=== PATIENT | female | born 1990 | race Caucasian/White ===

== ENCOUNTER 2018-10-22 08:43 | Emergency (ER) | payer BC ==
--- OUTSIDE RECORDS SUMMARY | 2018-10-22 08:48 | XMS REPORT | Continuity of Care Document ---
:1990 External Reference #:[id number] Author Name Gerardo Hernandez Care Team Providers Name Role Phone Jose Welsh MD Care Team Information Preschool Principal Unavailable Patient's Choice Primary Care Physician Unavailable Payers Type Date Identification Numbers Payment Provider Subscriber Policy Number: [id number] [facility] Danya Canales PayID: [id number] [address] [place] [address] Advance Directives Description No Information Available Problems Description No Information Family History Date Family Member(s) Problem(s) Comments General Heart Disease General Hypertension General Cancer Social History Type Date Description Comments Sex Unknown Lives With Alone Occupation Currently Working ETOH Use Currently consumes alcohol Tobacco Use Start: Unknown Patient has never smoked Smoking Status Reviewed: 10/09/18 Patient has never smoked Exercise Type/Frequency Exercises sporadically Allergies, Adverse Reactions, Alerts Date Description Reaction Status Severity Comments 03/06/2017 Latex Active 03/06/2017 Tape Active Medications Medication Date Status Form Strength Qnty SIG Indications Ordering Provider Ortho Tri-Cyclen Active Unknown (28) Tri Sprintec Hx Unknown - 08/27/2018 Immunizations Description No Information Available Vital Signs Date Vital Result Comment 10/09/2018 1:25pm Height 69 inches 5'9" Heart Rate 72 /min Respiratory Rate 16 /min Body Temperature 98.4 F Pain Level 4 08/28/2018 1:13pm Height 69 inches 5'9" Weight 164.00 lb BP Systolic 114 mmHg BP Diastolic 70 mmHg Respiratory Rate 15 /min Body Temperature 97.4 F Pain Level 3 BMI (Body Mass Index) 24.2 kg/m2 10/19/2017 9:11am Height 69 inches 5'9" Weight 160.00 lb Heart Rate 87 /min BP Systolic 100 mmHg BP Diastolic 66 mmHg Body Temperature 98.1 F Pain Level 2 BMI (Body Mass Index) 23.6 kg/m2 03/06/2017 11:02am Height 69 inches 5'9" Weight 150.00 lb Respiratory Rate 16 /min Pain Level 6 BMI (Body Mass Index) 22.1 kg/m2 Results Description No Information Available Procedures Date Code Description Status 07/23/2017 87667 Allergy Test, Patch Or Application Completed Encounters Type Date Location Provider Dx Diagnosis Office Visit 08/28/2018 [facility] Qing Arellano, M65.841 Other synovitis 1:00p [facility] and tenosynovitis, right hand Office Visit 10/19/2017 [facility] Guzman, S93.611S Sprain of tarsal 9:15a [facility] ligament of right foot, sequela M25.571 Pain in right ankle and joints of right foot Office Visit 07/26/2017 [facility] Eligio Penny, L23.9 Allergic contact 4:00p dermatitis, unspecified cause Office Visit 07/25/2017 [facility] Eligio Penny, L23.9 Allergic contact 4:00p dermatitis, unspecified cause Office Visit 07/03/2017 [facility] Eligio Penny, 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
[2018-10-22 08:51] VITALS: BP 115/73
--- NOTE | 2018-10-22 09:34 | UC ---
Complaint Female HPI - HPI Summary HPI Summary: ONSET OF DYSURIA, FREQUENCY AND URGENCY LAST NIGHT. NO FEVER, NAUSEA, BACK PAIN. - History Of Current Complaint Chief Complaint: UCGU Stated Complaint: URINARY ISSUE Time Seen by Provider: 10/22/18 09:28 Hx Obtained From: Patient Hx Last Menstrual Period: 07/26/16 Onset/Duration: Gradual Onset, Lasting Hours, Still Present Severity Initially: Moderate Severity Currently: Moderate Pain Intensity: 3 Pain Scale Used: 0-10 Numeric Character: Burning Aggravating Factor(s): Urination Alleviating Factor(s): Nothing Associated Signs And Symptoms: Negative: Fever, Back Pain, Nausea - Allergies/Home Medications Allergies/Adverse Reactions: Allergies Allergy/AdvReac Type Severity Reaction Status Date / Time latex AdvReac Rash And Verified 10/22/18 08:51 Itching PMH/Surg Hx/FS Hx/Imm Hx Previously Healthy: Yes - Surgical History Surgical History: Yes Surgery Procedure, Year, and Place: WISDOM TEETH - Family History Known Family History: Positive: Hypertension, Respiratory Disease - asthma - Social History Alcohol Use: Weekly Alcohol Amount: once Substance Use Type: None Smoking Status (MU): Never Smoked Tobacco - Immunization History Most Recent Influenza Vaccination: none Review of Systems All Other Systems Reviewed And Are Negative: Yes Constitutional: Positive: Negative Respiratory: Positive: Negative Cardiovascular: Positive: Negative Gastrointestinal: Positive: Negative Genitourinary: Positive: Dysuria, Frequency, Urgency Physical Exam Triage Information Reviewed: Yes Appearance: Well-Appearing, No Pain Distress, Well-Nourished Vital Signs: Initial Vital Signs Temp 97.2 F 10/22/18 08:48 Pulse 88 10/22/18 08:48 Resp 18 10/22/18 08:48 BP 115/73 10/22/18 08:48 Pulse Ox 100 10/22/18 08:48 Vital Signs Reviewed: Yes Eyes: Positive: Conjunctiva Clear ENT: Positive: Hearing grossly normal Neck: Positive: Supple Respiratory: Positive: No respiratory distress, No accessory muscle use Cardiovascular: Positive: Pulses Normal Abdomen Description: Positive: Nontender, Soft. Negative: CVA Tenderness (R), CVA Tenderness (L), Distended, Guarding Musculoskeletal: Positive: No Edema Neurological: Positive: Alert Psychological: Positive: Age Appropriate Behavior Skin: Negative: Rashes Complaint Female Dx - Differential Dx/Diagnosis Provider Diagnosis: UTI (urinary tract infection) Discharge - Sign-Out/Discharge Documenting (check all that apply): Patient Departure All imaging exams completed and their final reports reviewed: No Studies - Discharge Plan Condition: Stable Disposition: HOME Prescriptions: Phenazopyridine TAB* [Pyridium TAB*] 200 mg PO TID #6 tab Sulfamethox/Trimethoprim DS* [Bactrim DS 800/160 TAB*] 1 tab PO BID #10 tab Patient Education Materials: Urinary Tract Infection in Women (ED) Referrals: Leslye Wilkerson MD [Primary Care Provider] - If Needed - Billing Disposition and Condition Condition: STABLE Disposition: Home
== END 2018-10-22 09:38 | disposition home or self-care (01) ==
LOC: UCEAST 08:43
DX: N39.0 Urinary tract infection, site not specified (principal); Z91.040 Latex allergy status
CPT/HCPCS: 81003; 87077; 87086; 87186; 99212; G0463